=== PATIENT | male | born 1970 | race Caucasian/White ===

== ENCOUNTER 2017-03-22 14:08 | Inpatient (IN) | payer OTHER ==
[2017-03-22] MEDS ORDERED: fentaNYL 100 MCG/2 ML INJ ONE ×6 (14:14→20:23)
[2017-03-22] MEDS ORDERED: fentaNYL 100 MCG/2 ML INJ IVP ONE ×2 (14:15→15:25)
[2017-03-22] MEDS ORDERED: ONDANSETRON 4 MG/2 ML VIAL IVP ONE ×2 (14:15→15:35)
[2017-03-22] MEDS ORDERED: TDAP ADULT 0.5 ML INJ (BOOSTRIX) IM ONE (14:15)
[2017-03-22 14:32] LABS: ABSOLUTE IMMATURE GRANULOCYTES 0.27 10^3/uL (0.00-0.10); ADD DIFF? NO; ADD MORPH? NO; ADD SCAN? NO; ATYPICAL LYMPHOCYTE FLAG 10 (0-99); FRAGMENT RBC FLAG 0 (0-99); HEMATOCRIT 45.8 % (40.0-51.0); HEMOGLOBIN 15.9 g/dL (13.7-17.5); LEFT SHIFT FLG 30 (0-99); LIPEMIA HEMOLYSIS FLAG 90 (0-99); MEAN CELL HEMOGLOBIN 30.2 pg (27.9-34.1); MEAN CELL HEMOGLOBIN CONCENTR. 34.7 g/dL (32.4-36.7); MEAN CELL VOLUME 87.1 fL (81.5-99.8); MEAN PLATELET VOLUME 9.7 fL (8.7-11.7); PLATELET CLUMPS FLAG 20 (0-99); PLATELET COUNT 271 10^3/uL (150-400); RED BLOOD CELL COUNT 5.26 10^6/uL (4.40-6.38); RED CELL DISTRIBUTION WIDTH 12.6 % (11.5-15.2)
[2017-03-22 14:54] LABS: ANION GAP 17 mEq/L (8-16); CALCIUM 10.1 mg/dL (8.5-10.4); CARBON DIOXIDE 22 mEq/l (22-31); CHLORIDE 104 mEq/L (97-110); CREATININE 1.4 mg/dL (0.7-1.3); GLOMERULAR FILTRATION RATE 55; GLUCOSE 148 mg/dL (70-100); POTASSIUM 3.6 mEq/L (3.5-5.2); SODIUM 143 mEq/L (134-144)
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
[2017-03-22] MEDS ORDERED: IOPAMIDOL (ISOVUE-300) 100 ML BTL ONE (15:09)
[2017-03-22] MEDS ORDERED: ONDANSETRON 4 MG/2 ML VIAL ONE ×2 (15:26→21:42)
[2017-03-22] MEDS ORDERED: ceFAZolin 2 GM/DEXTROSE 100 ML IV ONE (16:29)
[2017-03-22] MEDS ORDERED: HYDROmorphONE/DILAUDID 1 MG/ML SYR IVP ONE (16:50)
[2017-03-22] MEDS ORDERED: HYDROmorphONE/DILAUDID 1 MG/ML SYR ONE (16:56)
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
[2017-03-22] MEDS ORDERED: BUPIVACAINE/EPI 0.5% 30 ML SDV ONE (18:55)
[2017-03-22] MEDS ORDERED: LIDOCAINE 1% 30 ML SDV ONE (18:55)
[2017-03-22] MEDS ORDERED: BACITRACIN 50,000 UNITS/10 ML SYR IRR ONE (18:56)
[2017-03-22] MEDS ORDERED: POLYMYXIN B SULFATE 500,000 UNIT/10 ML SYR IRR ONE (18:56)
[2017-03-22] MEDS ORDERED: MIDAZOLAM 2 MG/2 ML VIAL ONE (19:02)
[2017-03-22] MEDS ORDERED: PROPOFOL 200 MG/20 ML VIAL ONE (19:17)
[2017-03-22] MEDS ORDERED: ROCURONIUM 50 MG/5 ML VIAL ONE (19:19)
[2017-03-22] MEDS ORDERED: SUCCINYLCHOLINE CHLORIDE*ANESTHESIA ONLY*200 MG/10 ML SYR IVP ONE (19:25)
[2017-03-22] MEDS ORDERED: RANITIDINE 50 MG/2 ML VIAL ONE (19:26)
[2017-03-22] MEDS ORDERED: METOCLOPRAMIDE 10 MG/2 ML VIAL ONE (19:26)
[2017-03-22] MEDS ORDERED: PHENYLEPHRINE HCL 100 MCG/ML SYR ONE (19:38)
[2017-03-22] MEDS ORDERED: LR 1,000 ML IV SCH (20:00)
--- NOTE | 2017-03-22 20:04 | POSTOPPROG ---
Post Op Note Date of Operation: 03/22/17 Surgeon: Kaleb Gayle Anesthesia: GET(General Endotracheal) Pre-op Diagnosis: right pneumo Post-op Diagnosis: same Indication: same Procedure: right chest tube placement Findings: r pneumo Inf/Abcess present in the surg proc area at time of surgery?: No EBL: Minimal
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
[2017-03-22] MEDS ORDERED: GLYCOPYRROLATE 0.2 MG/1 ML VIAL ONE (21:47)
[2017-03-22] MEDS ORDERED: NEOSTIGMINE METHYLSULFATE 5 MG/5 ML SYR ONE (21:47)
--- NOTE | 2017-03-22 22:19 | POSTOPPROG ---
Post Op Note Date of Operation: 03/22/17 Surgeon: Esme Valencia Anesthesiologist: natalie Anesthesia: GET(General Endotracheal) Pre-op Diagnosis: open r clavicle fx Procedure: I&D r clavicle with ORIF Inf/Abcess present in the surg proc area at time of surgery?: Yes Depth: Deep Incisional (Fascial) EBL: 50-100
[2017-03-22] MEDS ORDERED: HYDROmorphONE/DILAUDID 2 MG/ML INJ ONE (22:38)
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
[2017-03-23] MEDS: HYDROCODONE/APAP 5/325 TAB PO PRN ×4 (00:15→11:56)
[2017-03-23 05:12] LABS: HEMOGLOBIN 12.6 g/dL (13.7-17.5); MEAN CELL HEMOGLOBIN 30.3 pg (27.9-34.1); MEAN CELL HEMOGLOBIN CONCENTR. 34.1 g/dL (32.4-36.7); MEAN CELL VOLUME 88.9 fL (81.5-99.8); RED BLOOD CELL COUNT 4.16 10^6/uL (4.40-6.38); RED CELL DISTRIBUTION WIDTH 13.1 % (11.5-15.2)
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
--- NOTE | 2017-03-23 11:56 | SOAPPROG ---
SOAP Progress Note Assessment/Plan: Assessment: Plan: - sling to R arm, may remove for gentle pendulum 5 times per day - dressing change - follow up in office within 2 wks - march d/c from ortho perspective 03/23/17 11:55 Subjective: Pain improved, no issues Objective: Vital Signs Temp Pulse Resp BP Pulse Ox 36.6 C 59 L 16 129/75 H 93 03/23/17 11:52 03/23/17 11:52 03/23/17 11:52 03/23/17 11:52 03/23/17 11:52 Laboratory Results 03/23/17 04:51 03/22/17 03/23/17 03/24/17 05:59 05:59 05:59 Intake Total 2000 Output Total 820 450 Balance 1180 -450 - Time Spent With Patient Time Spent With Patient: 5 - Pending Discharge Pending Discharge Within 24 Hours: No Pending Discharge Within 48 Hours: No ICD10 Worksheet Patient Problems: Problems Problem Status Onset Closed rib fracture Acute Facial bone fracture Acute Pneumothorax on right Acute Right clavicle fracture Acute
[2017-03-23] MEDS ORDERED: oxyCODONE IR 5 MG TAB PO PRN ×2 (12:05)
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
[2017-03-23] MEDS: LIDOCAINE 5% 1 EA PATCH TD SCH (14:51)
[2017-03-23] MEDS ORDERED: ONDANSETRON DISINTEGRATING 4 MG TAB ONE (18:30)
[2017-03-23] MEDS ORDERED: LACTULOSE 20 GM/30 ML UDCUP PO PRN (18:31)
[2017-03-23] MEDS ORDERED: MAGNESIUM HYDROXIDE 30 ML UDCUP PO PRN (18:31)
[2017-03-23] MEDS ORDERED: BISACODYL 10 MG SUPP PR PRN (18:31)
[2017-03-23] MEDS ORDERED: POLYETHYLENE GLYCOL 3350 17 GM PKT PO PRN (18:31)
[2017-03-23] MEDS ORDERED: ONDANSETRON 4 MG/2 ML VIAL IVP PRN (18:31)
[2017-03-23] MEDS: ONDANSETRON DISINTEGRATING 4 MG TAB PO PRN (18:41)
[2017-03-23] MEDS: SENNOSIDES/DOCUSATE SODIUM TAB PO SCH (19:32)
[2017-03-23] MEDS: oxyCODONE IR 5 MG TAB PO PRN ×2 (19:33→23:29)
[2017-03-23] MEDS: PATCH REMOVAL 1 EA PATCH TD SCH (23:36)
[2017-03-24] MEDS: oxyCODONE IR 5 MG TAB PO PRN ×3 (05:09→21:22)
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
[2017-03-24] MEDS: LIDOCAINE 5% 1 EA PATCH TD SCH (08:21)
[2017-03-24] MEDS: SENNOSIDES/DOCUSATE SODIUM TAB PO SCH ×2 (08:21→21:24)
[2017-03-24] MEDS: ONDANSETRON DISINTEGRATING 4 MG TAB PO PRN (08:44)
[2017-03-24] MEDS ORDERED: METOCLOPRAMIDE 10 MG/2 ML VIAL IVP PRN (09:11)
--- NOTE | 2017-03-24 09:18 | SOAPPROG ---
SOAP Progress Note Assessment/Plan: Assessment: Plan: Subjective: nausea, no appetite, minimal flatus, no stools s/p r rib fs, r pneumo, r clavicle, t9 20%compression fx r adrenal hemorrage lungs clear heart wnl abd soft ileus expected with retroperitoneal bleeding from adrenal and t9 compression fx. chest tube taken off suction this am. no obvioius air leak. chest tube out tomorrow if cxr ok in am runilr at 100 as pt not taking po well. recc start lovenox tomorrow if hct ok. have oredred cxr and hct in am. Objective: Vital Signs Temp Pulse Resp BP Pulse Ox 36.8 C 56 L 16 124/70 H 91 L 03/24/17 07:55 03/24/17 07:55 03/24/17 07:55 03/24/17 07:55 03/24/17 07:55 Laboratory Results 03/23/17 04:51 03/23/17 03/24/17 03/25/17 05:59 05:59 05:59 Intake Total 1999 900 Output Total 820 1150 Balance 1180 -250 ICD10 Worksheet Patient Problems: Problems Problem Status Onset Closed rib fracture Acute Facial bone fracture Acute Pneumothorax on right Acute Right clavicle fracture Acute
--- NOTE | 2017-03-24 12:08 | SOAPPROG ---
SOAP Progress Note Assessment/Plan: Assessment: Plan: - sling to R arm, may remove for gentle pendulum 5 times per day - dressing change - follow up in office within 2 wks - march d/c from ortho perspective 03/23/17 11:55 Subjective: Pain improved over yesterday, no issues with the shoulder Objective: Vital Signs Temp Pulse Resp BP Pulse Ox 36.8 C 56 L 16 124/70 H 91 L 03/24/17 07:55 03/24/17 07:55 03/24/17 07:55 03/24/17 07:55 03/24/17 07:55 Laboratory Results 03/23/17 04:51 03/23/17 03/24/17 03/25/17 05:59 05:59 05:59 Intake Total 2000 900 Output Total 820 1150 Balance 1180 -250 Dressing CDI, wound looks good, NVI distally - Time Spent With Patient Time Spent With Patient: 5 - Pending Discharge Pending Discharge Within 24 Hours: No Pending Discharge Within 48 Hours: No ICD10 Worksheet Patient Problems: Problems Problem Status Onset Closed rib fracture Acute Facial bone fracture Acute Pneumothorax on right Acute Right clavicle fracture Acute
--- NOTE | 2017-03-24 13:22 | SOAPPROG ---
SOAP Progress Note Assessment/Plan: Assessment: Plan: Subjective: states his shoulder has some pain but better dressing C&D with hand NVI cont sling Objective: Vital Signs Temp Pulse Resp BP Pulse Ox 36.8 C 56 L 16 124/70 H 91 L 03/24/17 07:55 03/24/17 07:55 03/24/17 07:55 03/24/17 07:55 03/24/17 07:55 Laboratory Results 03/23/17 04:51 03/23/17 03/24/17 03/25/17 05:59 05:59 05:59 Intake Total 1999 900 Output Total 820 1150 Balance 1180 -250 ICD10 Worksheet Patient Problems: Problems Problem Status Onset Closed rib fracture Acute Facial bone fracture Acute Pneumothorax on right Acute Right clavicle fracture Acute
[2017-03-24] MEDS: PATCH REMOVAL 1 EA PATCH TD SCH (21:24)
[2017-03-25] MEDS: oxyCODONE IR 5 MG TAB PO PRN ×4 (00:44→20:01)
[2017-03-25 05:12] LABS: HEMATOCRIT 38.3 % (40.0-51.0); HEMOGLOBIN 12.8 g/dL (13.7-17.5); MEAN CELL HEMOGLOBIN 30.3 pg (27.9-34.1); MEAN CELL HEMOGLOBIN CONCENTR. 33.4 g/dL (32.4-36.7); MEAN CELL VOLUME 90.5 fL (81.5-99.8); RED BLOOD CELL COUNT 4.23 10^6/uL (4.40-6.38); RED CELL DISTRIBUTION WIDTH 12.4 % (11.5-15.2)
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
[2017-03-25] MEDS: LIDOCAINE 5% 1 EA PATCH TD SCH (08:20)
[2017-03-25] MEDS: SENNOSIDES/DOCUSATE SODIUM TAB PO SCH ×2 (08:20→20:01)
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
--- NOTE | 2017-03-25 10:40 | SOAPPROG ---
SOAP Progress Note Assessment/Plan: Assessment: Plan: - sling to R arm, may remove for gentle pendulum 5 times per day - dressing change - follow up in office within 2 wks - march d/c from ortho perspective 03/23/17 11:55 Subjective: No change, pain improved Objective: Vital Signs Temp Pulse Resp BP Pulse Ox 36.6 C 52 L 12 138/71 H 98 03/25/17 08:00 03/25/17 08:00 03/25/17 08:00 03/25/17 08:00 03/25/17 08:00 Laboratory Results 03/25/17 04:32 03/24/17 03/25/17 03/26/17 05:59 05:59 05:59 Intake Total 900 1238 Output Total 1150 765 Balance -250 473 Wound CDI, NvI distally - Time Spent With Patient Time Spent With Patient: 10 - Pending Discharge Pending Discharge Within 24 Hours: No Pending Discharge Within 48 Hours: No ICD10 Worksheet Patient Problems: Problems Problem Status Onset Closed rib fracture Acute Facial bone fracture Acute Pneumothorax on right Acute Right clavicle fracture Acute
[2017-03-25] MEDS: ONDANSETRON DISINTEGRATING 4 MG TAB PO PRN (15:36)
[2017-03-25] MEDS: METHOCARBAMOL 750 MG TAB PO PRN (18:08)
[2017-03-25] MEDS: PATCH REMOVAL 1 EA PATCH TD SCH (20:02)
[2017-03-26] MEDS: oxyCODONE IR 5 MG TAB PO PRN ×5 (00:27→20:47)
[2017-03-26] MEDS: LR 1,000 ML IV SCH (00:27)
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
[2017-03-26] MEDS: SENNOSIDES/DOCUSATE SODIUM TAB PO SCH ×2 (09:06→20:47)
[2017-03-26] MEDS: LIDOCAINE 5% 1 EA PATCH TD SCH (09:08)
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
[2017-03-26] MEDS ORDERED: MIDAZOLAM 2 MG/2 ML VIAL ONE (10:01)
[2017-03-26] MEDS ORDERED: fentaNYL 100 MCG/2 ML INJ ONE (10:01)
[2017-03-26] MEDS ORDERED: TRIAMCINOLONE ACETONIDE 200 MG/5 ML MDV IM ONE (10:47)
[2017-03-26] MEDS ORDERED: IOPAMIDOL (ISOVUE-M 300) 15 ML VIAL ONE (10:47)
--- NOTE | 2017-03-26 11:08 | POSTOPPROG ---
Post Op Note Date of Operation: 03/26/17 Surgeon: Colby Mattson Anesthesia: IV Sedation Pre-op Diagnosis: Trauma. DDD L5-S1 Post-op Diagnosis: Same Indication: Sciatica, right leg pain Procedure: R L5-S1 transforaminal epidural steroid injection Findings: Good distribution. Provoked pain in familiar distribution. Inf/Abcess present in the surg proc area at time of surgery?: No EBL: Minimal Complications: 0
--- NOTE | 2017-03-26 13:09 | SOAPPROG ---
SOAP Progress Note Assessment/Plan: Assessment: Plan: - sling to R arm - Changed dressing today - ortho will sign off - follow up in office within 2 weeks for xrays 03/23/17 11:55 03/26/17 13:07 Subjective: Pain improved, no issues with the shoulder Objective: Vital Signs Temp Pulse Resp BP Pulse Ox 36.8 C 58 L 16 127/78 H 93 03/26/17 11:48 03/26/17 11:48 03/26/17 11:48 03/26/17 11:48 03/26/17 11:48 Laboratory Results 03/25/17 04:32 03/25/17 03/26/17 03/27/17 05:59 05:59 05:59 Intake Total 1238 400 Output Total 765 900 Balance 473 -500 Wound CDI, healing well, posterior shoulder skin is healing, minor drainage no evidence of infection - Time Spent With Patient Time Spent With Patient: 10 - Pending Discharge Pending Discharge Within 24 Hours: No Pending Discharge Within 48 Hours: No ICD10 Worksheet Patient Problems: Problems Problem Status Onset Closed rib fracture Acute Facial bone fracture Acute Pneumothorax on right Acute Right clavicle fracture Acute
[2017-03-26] MEDS: ONDANSETRON DISINTEGRATING 4 MG TAB PO PRN ×2 (17:01→20:47)
[2017-03-26] MEDS: METHOCARBAMOL 750 MG TAB PO PRN (17:40)
[2017-03-26] MEDS: PATCH REMOVAL 1 EA PATCH TD SCH (20:48)
[2017-03-27] MEDS: oxyCODONE IR 5 MG TAB PO PRN ×2 (00:17→08:28)
[2017-03-27] MEDS: LR 1,000 ML IV SCH (00:17)
[2017-03-27] MEDS: METHOCARBAMOL 750 MG TAB PO PRN (08:28)
[2017-03-27] MEDS: SENNOSIDES/DOCUSATE SODIUM TAB PO SCH (08:28)
[2017-03-27] MEDS ORDERED: LIDO/EPI 1% **Not for Epidural 20 ML MDV ONE (09:25)
[2017-03-27] MEDS ORDERED: MIDAZOLAM 2 MG/2 ML VIAL ONE (09:59)
[2017-03-27] MEDS: LIDOCAINE 5% 1 EA PATCH TD SCH (10:01)
--- NOTE | 2017-03-27 10:03 | SOAPPROG ---
SOAP Progress Note Assessment/Plan: Assessment: Pt with maxillary fx, minimal nondisplaced R lateral orbital fx and R zygomatic arch fracture. Plan for open reduction R arch fx today . Other fxs nonop. Still rec he sees optho at some point. Plan: 03/27/17 10:01 P Subjective: Pt with a few nondisplaced facial fxs, except has a minimally depressed fx of R zygomatic arch. Surgery today. Denies sig pain or vision changes Objective: AFVSS RA ecchymosis and abrasions over R face R lateral conj hemorrhage mild depression of R malar eminence. Vital Signs Temp Pulse Resp BP Pulse Ox 37.1 C 64 14 144/80 H 97 03/27/17 07:51 03/27/17 07:51 03/27/17 07:51 03/27/17 07:51 03/27/17 07:51 Laboratory Results 03/25/17 04:32 03/26/17 03/27/17 03/28/17 05:59 05:59 05:59 Intake Total 400 800 Output Total 900 400 Balance -500 400 ICD10 Worksheet Patient Problems: Problems Problem Status Onset Closed rib fracture Acute Facial bone fracture Acute Pneumothorax on right Acute Right clavicle fracture Acute
[2017-03-27] MEDS ORDERED: PROPOFOL 200 MG/20 ML VIAL ONE ×2 (10:06)
[2017-03-27] MEDS ORDERED: fentaNYL 100 MCG/2 ML INJ ONE ×4 (10:06→11:51)
[2017-03-27] MEDS ORDERED: BUPIVACAINE/EPI 0.5% 30 ML SDV ONE ×2 (10:21→10:22)
[2017-03-27] MEDS ORDERED: LIDO/EPI 1% **for epidural** 30 ML SDV ONE (10:22)
[2017-03-27] MEDS ORDERED: DEXAMETHASONE 4 MG/ML VIAL ONE ×2 (10:22→10:51)
[2017-03-27] MEDS ORDERED: ONDANSETRON 4 MG/2 ML VIAL ONE (10:22)
--- NOTE | 2017-03-27 11:21 | POSTOPPROG ---
Post Op Note Date of Operation: 03/27/17 Surgeon: Julia Almanza Anesthesia: GET(General Endotracheal) Pre-op Diagnosis: R zygomatic arch fx Post-op Diagnosis: same Procedure: open reduction R zygomatic arch fx Findings: slight depression over R arch, improved po Inf/Abcess present in the surg proc area at time of surgery?: No EBL: Minimal Complications: none apparent
--- NOTE | 2017-03-27 11:36 | GOP ---
[f rep st] OPERATIVE REPORT DATE OF OPERATION: 03/22/2017 SURGEON: Julia Almanza MD ANESTHESIA: General. PREOPERATIVE DIAGNOSIS: Right depressed zygomatic arch fracture. POSTOPERATIVE DIAGNOSIS: Right depressed zygomatic arch fracture. PROCEDURE PERFORMED: Open Reduction Right zygomatic arch fracture FINDINGS: Patient was found to have a slight depression of the zygomatic arch that was able to be reduced with better symmetry of the malar eminence. ESTIMATED BLOOD LOSS: Minimal. DESCRIPTION OF PROCEDURE: PROCEDURE PERFORMED: Open reduction of right zygomatic arch fracture. COMPLICATIONS: None. PROCEDURE: The patient was first seen in the preoperative area, where informed consent was obtained. He was then brought back to the operating room, where Anesthesia sedated and intubated him with an LMA. The bed was turned 90 degrees. He was prepped and draped in a sterile fashion and then a 2 cm incision was marked out about 2 cm anterior and superior to the superior aspect of the helix. I then injected 2 cc of 1% lidocaine with 1:100,000 epinephrine. Once this had sufficient time to act, a 15 blade was used to make an incision through the skin and subcutaneous tissues, and then blunt dissection was used until we came to the deep temporal fascia. Once I came to this, the fascia was incised using a 15 blade, and then a [place] was gently placed underneath this temporalis fascia and above the temporalis muscle and slid along that fascia until I was able to palpate with the [place] underneath the zygomatic arch. Once I had this probed and released, I then removed the [place] and used a wider curved retractor that was placed in the same position, and then some manual traction was used to reduce the fracture anteriorly. Once this was done, the instruments were removed. He was noted to have better symmetry. The wound was irrigated out copiously with normal saline, and then the skin and subcutaneous tissues were closed using a 4-0 chromic in a running fashion. The wound was cleaned and then bacitracin was placed over the incision. The patient was turned back over Anesthesia, where he was awoken and extubated, and taken to PACU in stable condition. There were no complications and he tolerated the procedure well. /[id number]/MODL MTDD
[2017-03-27 14:40] VITALS: RESP 14
[2017-03-27 16:19] VITALS: BP 143/88; PULSE 64; TEMP 97.9; O2SAT 93
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
== END 2017-03-27 18:09 | disposition home or self-care (01) | DRG 516 ==
LOC: EDUNIT# → F3N 17:48
PROVIDERS: ADMIT Surgery; ATTEND Surgery
PROC: 0NSM04Z Reposition Right Zygomatic Bone with Internal Fixation Device, Open Approach (ICD-10-PCS; principal; 2017-03-22 19:17)
PROC: 0W9900Z Drainage of Right Pleural Cavity with Drainage Device, Open Approach (ICD-10-PCS; 2017-03-22 19:17)
PROC: 0PS904Z Reposition Right Clavicle with Internal Fixation Device, Open Approach (ICD-10-PCS; 2017-03-22 19:17)
PROC: 3E0T33Z Introduction of Anti-inflammatory into Peripheral Nerves and Plexi, Percutaneous Approach (ICD-10-PCS; 2017-03-26)
PROC: 3E0T3BZ Introduction of Anesthetic Agent into Peripheral Nerves and Plexi, Percutaneous Approach (ICD-10-PCS; 2017-03-26)
DX: S42.021B Displaced fracture of shaft of right clavicle, initial encounter for open fracture (principal); S22.31XA Fracture of one rib, right side, initial encounter for closed fracture; S02.40EA Zygomatic fracture, right side, initial encounter for closed fracture; S02.40CA Maxillary fracture, right side, initial encounter for closed fracture; S27.0XXA Traumatic pneumothorax, initial encounter; V19.3XXA Pedal cyclist (driver) (passenger) injured in unspecified nontraffic accident, initial encounter; Y93.55 Activity, bike riding
CPT/HCPCS: 82947-QW; 92507-GN; 92523-GN; 96374; 97116-GP; 97162-GP; 97166-GO; 97530-GO; 97530-GP; 97535-GO; C1713; C1729; J0330; J0690; J1100; J1170; J2250; J2370; J2405; J2704; J2710; J2765; J2780; J3010; J3301; Q9967

== ENCOUNTER 2018-09-07 17:34 | Emergency (ER) | payer OTHER ==
[2018-09-07 17:40] VITALS: BP 144/84
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
== END 2018-09-07 18:24 | disposition home or self-care (01) ==
DX: S16.1XXA Strain of muscle, fascia and tendon at neck level, initial encounter (principal); V49.49XA Driver injured in collision with other motor vehicles in traffic accident, initial encounter; Y92.410 Unspecified street and highway as the place of occurrence of the external cause